=== PATIENT | male | born 1955 | race Caucasian/White ===

== ENCOUNTER → 2017-01-12 | Outpatient (CLI) | payer BC ==
[2017-01-12 07:42] LABS: Basophils % (A) 0 %; CH 31.9; CHCM 35.1; Eosinophils # (A) 0.1 k/uL (0-0.7); Eosinophils % (A) 1 %; HCT 50.7 % (39.0-53.0); HDW 2.76; HGB 17.5 gm/dL (13.0-17.5); Luc # (Auto) 0.22; Luc % (Auto) 2; Lymphocytes # (A) 1.9 k/uL (1.0-4.8); Lymphocytes % (A) 20 %; MCH 31.4 pg (25.0-35.0); MCHC 34.5 g/dL (31.0-37.0); MCV 91.2 fL (80.0-100.0); Mean Platelet Volume 6.2; Monocytes # (A) 0.7 k/uL (0-1.0); Monocytes % (A) 7 %; Neutrophils # (A) 6.6 k/uL (1.3-7.7); Neutrophils % (A) 70 %; RBC 5.56 m/uL (4.30-5.90); RDW 13.4 % (11.5-15.5); WBC 9.5 k/uL (3.8-10.6); WBC (Perox) 9.22
[2017-01-12 07:48] LABS: Prothrombin Time 10.3 sec (9.0-12.0)
[2017-01-12 08:01] LABS: Anion Gap 11 mmol/L; Blood Urea Nitrogen 21 mg/dL (9-20); Calcium 9.4 mg/dL (8.4-10.2); Carbon Dioxide 29 mmol/L (22-30); Chloride 98 mmol/L (98-107); Glucose 93 mg/dL (74-99); Non-African American GFR(MDRD) >60 (>60 ml/min/1.73 sqM); Potassium 4.2 mmol/L (3.5-5.1); Sodium 138 mmol/L (137-145)
== END | disposition home or self-care (01) ==
LOC: LABPAT 06:48
PROVIDERS: ATTEND Orthopaedic Surgery Orthopaedic Surgery of the Spine
DX: Z01.812 Encounter for preprocedural laboratory examination (principal)
CPT/HCPCS: 80048; 85025; 85610; 85730; 86850; 86900; 86901; 87070

== ENCOUNTER 2017-01-18 11:43 | Observation (INO) | payer BC ==
[2017-01-12 14:51] VITALS: BMI 30.7
[~2017-01-18 11:43] MED LIST: BACITRACIN 50,000 UNIT, POLYMYXIN B 500,000 UNIT in SODIUM CHLORIDE 0.9% IRRIGATIO 1,00... IRRIGATION ONE; ceFAZolin 2 GM in SODIUM CHLORIDE 0.9% 100 ML IVPB ONE
[2017-01-18] MEDS ORDERED: ONDANSETRON 4 MG/2 ML VIAL IVP ONE (11:48)
[2017-01-18] MEDS ORDERED: MIDAZOLAM 2 MG/2 ML VIAL IV PRN (11:48)
[2017-01-18] MEDS ORDERED: LACTATED RINGERS 1,000 ML IV SCH (11:48)
[2017-01-18] MEDS ORDERED: DEXAMETHASONE SOD PHOSPHATE 10 MG/ML 1 ML VIAL IV ONE (11:48)
[2017-01-18] MEDS ORDERED: LACTATED RINGERS 1,000 ML IV ONE (12:08)
[2017-01-18] MEDS ORDERED: LIDOCAINE 1% 20 ML VIAL (10MG/ML) FOR IV START INTRADERMA ONE (12:10)
[2017-01-18] MEDS ORDERED: fentaNYL (PF) 50 MCG/ML 2 ML AMP ONE (12:56)
[2017-01-18] MEDS ORDERED: PROPOFOL 10 MG/ML 20 ML VIAL IV ONE (12:56)
[2017-01-18] MEDS ORDERED: PHENYLEPHRINE-0.9% NACL SYG 1 MG/10 ML SYRINGE ONE (12:56)
[2017-01-18] MEDS ORDERED: GLYCOPYRROLATE 0.2 MG/ML 2 ML VIAL ONE (12:56)
[2017-01-18] MEDS ORDERED: MIDAZOLAM 2 MG/2 ML VIAL ONE (12:56)
[2017-01-18] MEDS ORDERED: ROCURONIUM BROMIDE 10 MG/ML 10 ML VIAL IV ONE (12:56)
[2017-01-18] MEDS ORDERED: SUCCINYLCHOLINE CHLORIDE 100 MG/5 ML SYR IV ONE (12:56)
[2017-01-18] MEDS ORDERED: LIDOCAINE 1% INJ 10MG/ML (20 ML MDV) ONE (12:56)
[2017-01-18] MEDS ORDERED: ePHEDrine 50 MG/ML 1 ML AMP ONE (12:56)
[2017-01-18] MEDS ORDERED: NEOSTIGMINE 1 MG/ML 10 ML VIAL ONE (12:56)
[2017-01-18] MEDS ORDERED: LIDOCAINE 0.5%-EPI 1:200,000 50 ML VIAL SQ ONE (13:30)
--- NOTE | 2017-01-18 14:10 | XR ---
EXAMINATION TYPE: XR lumbar spine 1V, FL guidance operating room DATE OF EXAM: 01/18/2017 1:45 PM COMPARISON: NONE HISTORY: 61-year-old male lumbar laminectomy in the OR. FINDINGS: Single lateral view of the lumbar spine intraoperatively shows metallic instruments posteriorly at th e L3-L4 level. Total fluoroscopy time of 4 seconds was utilized for lumbar laminectomy. One image was provided and d ocuments the procedure. IMPRESSION: Intraoperative fluoroscopy as above.
[2017-01-18] MEDS ORDERED: BENZOCAINE/MENTHOL LOZENG 1 EACH LOZENGE MUCOUS MEM PRN (14:38)
[2017-01-18] MEDS ORDERED: KETOROLAC 30 MG/ML 1 ML VIAL IVP PRN (14:39)
[2017-01-18] MEDS ORDERED: IBUPROFEN 600 MG TAB PO PRN (14:39)
[2017-01-18] MEDS ORDERED: HYDROcodone/APAP 5-325MG 1 EACH TAB PO PRN ×2 (14:39→14:42)
--- NOTE | 2017-01-18 14:47 | P.OP ---
Date of Procedure: 01/18/17 Preoperative Diagnosis: Massive disc herniation L3 4, left lower extremity radiculopathy, left lower extremity weakness Postoperative Diagnosis: Same Anesthesia: GETA Pathology: none sent Condition: stable Disposition: PACU Description of Procedure: BRIEF OPERATIVE NOTE Preoperative Diagnosis: Massive disc herniation L3 4, left lower extremity radiculopathy, left lower extremity weakness Postoperative Diagnosis: Same Procedure: Laminectomy and decompression L3 4 Discectomy for decompression L3 4 Use of fluoroscopic guidance Surgeon: Dr. Funk Planishing Press Operator: David Lemos is present throughout the entire the case persistence during positioning, dissection, exposure, visualization, and all crucial elements of the case as well as closure. Anesthesia: General anesthesia Estimated blood loss: Approximately 50 mL Complications: None apparent Components implanted: None Disposition: To recovery room in good stable condition. OPERATIVE INDICATIONS The patient has been having issues in their lower back and lower extremities. He was found to have a massive disc herniation at L3 4 causing severe central and bilateral foraminal stenosis worse on the left than the right. The patient was having severe symptoms correlated well with these findings including upper extremity radiculopathy and weakness. The patient has been through conservative treatment. he is not having any benefit despite conservative care We discussed various treatment options including surgery, and the patient wishes to proceed with surgery We discussed the risk, patient's alternatives and benefits of surgery including but not limited to, risk of bleeding risk of infection, risk of need for further surgery, risk of decreased, loss of motion, loss of function, nerve damage, paralysis, heart attack, blindness and . OPERATIVE SUMMARY After discussing all the risks, patient alternatives and benefits at length, the patient elected to proceed with surgical intervention, signed informed consent, and presented for their procedure. The patient was seen and examined in the preoperative holding area and the surgical site was marked. The patient was given antibiotics and brought to the operating room. The patient was sedated and intubated by anesthesia in standard fashion. The patient was positioned on to the operating room table in a prone position on the appropriate frame which was well-padded and well molded. We were careful to pad any bony prominences and pressure points. We were careful to maintain the patient's cervical spine and good neutral alignment and position throughout. The patient was prepped and draped in a normal standard fashion. An appropriate timeout and keystone protocol performed. We were able to proceed with the surgery. Fluoroscopy was utilized to establish the appropriate level. The local wound area was infiltrated with local anesthetic. An incision was made at the midline longitudinally over the appropriate levels At L3 4. Dissection was taken down subcutaneously to the level of the fascia which was split midline. Dissection was taken over the lamina. Intraoperative fluoroscopy was taken which showed a marker at the appropriate level At L3 4. With the appropriate level positively confirmed, we were able to proceed with laminectomy. The wound was copiously irrigated and suctioned dry as had been done periodically throughout the case. I performed a laminectomy with a combination of curettes and a high-speed bur and Kerrison rongeurs. A small medial facetectomy was performed again further access. A partial foraminotomy was also performed. Portions of the ligamentum flavum were taken down to expose the dura and traversing nerve root. I was able to mobilize the traversing nerve root and gain access to the disc space. Note was made of obvious compression from the disc. There is large fragments of extruded disc material causing severe distortion and tension at the traversing nerve root and dura. I was able to remove a number of large disc fragments which gave excellent decompression at the space. Protecting the soft tissue structures, a small annulotomy was established Over a large rent in the lateral aspect of the disc. I was able to perform discectomy and remove any extruded disc fragments and any loose fragments from within the disc itself. There is some disc significant desiccation noted. I tried to preserve the disc annulus that appeared stable. There were no further extruded fragments noted. at the anterior lateral aspect of the dura there was evidence of small dural abrasion but there is no evidence of active leakage of CSF from the space. It was possibly 1 mm in size. I did not feel that needed specific stitches but I decided to place Tisseel over the space for supplementary healing. There is no evidence of any active leakage. Good hemostasis maintained. The wound was copiously irrigated and suctioned dry. Good decompression and discectomy was noted. We were able to proceed with closure. The fascia was closed for a watertight closure. The subcuticular tissue was closed with absorbable suture. The wound was cleaned and dried and dressed with the appropriate dressing. The drapes were broken down. The patient was gently rolled back onto their hospital bed being careful to maintain their cervical spine and good neutral alignment and position. They were woken up by anesthesia, extubated, and brought to the recovery room in good stable condition. The patient will be admitted to the hospital for observation and for appropriate postoperative care, medical management and monitoring. We will continue to follow them closely about the postoperative course.
[2017-01-18] MEDS: HYDROmorphone 1 MG/ML 1 ML SYRINGE IVP PRN ×3 (14:52→19:36)
[2017-01-18] MEDS: GABAPENTIN 100 MG CAP PO SCH ×2 (16:27→23:02)
[2017-01-18] MEDS: SODIUM CHLORIDE 0.9% 1,000 ML IV SCH (16:28)
[2017-01-18] MEDS: ceFAZolin 2 GM in SODIUM CHLORIDE 0.9% 100 ML IVPB SCH (16:40)
[2017-01-18] MEDS: DIAZEPAM 5 MG TAB PO PRN ×2 (16:44→20:06)
[2017-01-18] MEDS: HYDROcodone/APAP 5-325MG 1 EACH TAB PO PRN ×2 (17:41→23:02)
[2017-01-19] MEDS: ceFAZolin 2 GM in SODIUM CHLORIDE 0.9% 100 ML IVPB SCH (02:12)
[2017-01-19] MEDS: SODIUM CHLORIDE 0.9% 1,000 ML IV SCH ×2 (04:48→10:57)
[2017-01-19] MEDS: PANTOPRAZOLE 40 MG TABLET PO SCH (08:16)
[2017-01-19] MEDS: ATORVASTATIN 20 MG TAB PO SCH (08:16)
[2017-01-19] MEDS: LOSARTAN-HCTZ 50-12.5 MG 1 EACH TAB PO SCH (08:16)
[2017-01-19] MEDS: GABAPENTIN 100 MG CAP PO SCH ×3 (08:16→21:42)
--- NOTE | 2017-01-19 09:07 | P.DS ---
Providers Date of admission: 01/18/17 22:02 Expected date of discharge: 01/19/17 Attending physician: Seda Funk Primary care physician: Adithya Pantoja - Discharge Diagnosis(es) (1) Herniated nucleus pulposus, L3-4 left Current Visit: Yes Status: Acute (2) Left leg weakness Current Visit: Yes Status: Acute (3) Radiculopathy with lower extremity symptoms Current Visit: Yes Status: Acute Hospital Course: This is a pleasant 61-year-old male who presented with an L3-4 massive disc herniation with left lower extremity radiculopathy and weakness who failed outpatient conservative therapy. He was admitted for an L3-4 laminectomy, decompression, and discectomy. He did sustain a small dural abrasion during surgical intervention. Since that time, patient has remained lying flat on his back or on his side. We will plan have him sit up in approximately 11:00 AM today, 01/19/2017, to eat his lunch. We will assess whether he is having any spinal headaches. We discussed if he is not experiencing any spinal headaches, he may begin to ambulate and increase activities to tolerance. If he is not having any spinal headaches with increased activities he'll be cleared for discharge home today. If he does have evidence of spinal headaches, he is to be placed on bedrest and he must remain lying flat on his back or on his side. Postsurgically, patient states his pain has been well-controlled. He is not experiencing significant lower extremity radiculopathy, which was present prior to surgical intervention. He has had some constipation over the last several days due to his pain medication. He states he has noticed some delay in urination postsurgically but states it has improved this morning as compared to yesterday. We discussed if this does not continue to improve prior to discharge , we'll discuss further treatment and assessment prior to discharge. He is looking forward to sitting up today and attempting to eat and increase activities with plans of being discharged home today. Overall, patient is not currently experiencing any significant setbacks postsurgically. If the patient is able to sit up and increase activities without evidence of spinal headaches, he'll plan to be discharged this afternoon. Condition on day of discharge stable. Patient will be discharged home. Patient was cleared preoperatively for surgery by Dr. Adithya Pantoja. Patient currently denies any nausea, vomiting , fever, or chills. He denies any abdominal pain or discomfort. Patient may shower Tegaderm dressing intact. Patient may remove Tegaderm dressing in 3 days and shower without a dressing at that time. Patient should keep Steri- Strips intact and allow them to fall off naturally. Patient should refrain from driving until at least after their first follow-up appointment in the office. Patient should avoid excessive bending, lifting, and twisting; no lifting greater than 10 pounds. Patient states he has a prescription for [place] 5 mg/325 mg and Neurontin 100 mg at home. He feels he has adequate amounts of both of these prescriptions and does not currently need any refills at discharge. We will plan to give him a prescription for Senokot-S at discharge which he may take up to twice per day as needed for constipation. He may resume other prescribed medications. Physical Exam on day of discharge: Patient is awake, alert, and oriented 3 Vital signs stable Good chest excursion with deep inspiration and expiration Abdomen soft nontender No signs or symptoms of DVT; no calf pain Extensor hallucis longus, plantarflexion, and dorsiflexion positive sustained bilateral lower extremities Incision is dry and intact; evidence of some dried blood over the nonstick Telfa with no active drainage; no erythema, purulence, or signs of infection Tegaderm dressing and non-stick Telfa intact Procedures: L3-4 laminectomy, decompression, and discectomy Patient Condition at Discharge: Stable Plan - Discharge Summary New Discharge Prescriptions: Sennosides-Docusate Sodium [Senokot-S] 1 tab PO BID PRN #60 tablet PRN Reason: Constipation Discharge Medication List Atorvastatin [Lipitor] 20 mg PO DAILY 06/28/15 [History] Losartan/Hydrochlorothiazide [Losartan-Hctz 100-25 mg Tab] 1 tab PO DAILY [History] Gabapentin [Neurontin] 100 mg PO TID 01/12/17 [History] HYDROcodone/APAP 5-325MG [[place] 5-325] 1 tab PO Q8HR PRN 01/12/17 [History] Omeprazole 20 mg PO DAILY 01/12/17 [History] Sennosides-Docusate Sodium [Senokot-S] 1 tab PO BID PRN #60 tablet 01/19/17 [Rx] Follow up Appointment(s)/Referral(s): David Taveras, SHEA [PHYSICIAN BIT SHARPENER] - 2 Weeks (Patient may follow-up with David Taveras PA-C or Dr. Jayson Funk at [facility] in 2-3 weeks following discharge. ) Activity/Diet/Wound Care/Special Instructions: 1. Patient may shower Tegaderm dressing intact. 2. Patient may remove Tegaderm dressing in 3 days and shower without a dressing at that time. 3. Patient should keep Steri-Strips intact and allow them to fall off naturally. 4. Patient should refrain from driving until at least after their first follow- up appointment in the office. 5. Patient should avoid excessive bending, twisting, and lifting; no lifting greater than 10 pounds 6. Do not soak in tub Discharge Disposition: HOME SELF-CARE
[2017-01-19] MEDS: HYDROcodone/APAP 5-325MG 1 EACH TAB PO PRN ×3 (09:28→20:42)
[2017-01-19] MEDS: HYDROmorphone 1 MG/ML 1 ML SYRINGE IVP PRN ×2 (11:04→20:42)
[2017-01-19] MEDS: DIAZEPAM 5 MG TAB PO PRN ×2 (11:04→20:43)
[2017-01-19] MEDS: ONDANSETRON 4 MG/2 ML VIAL IVP PRN (12:54)
[2017-01-19] MEDS: TAMSULOSIN 0.4 MG CAP.ER.24H PO SCH (13:36)
--- NOTE | 2017-01-19 20:47 | CONS ---
DATE OF CONSULTATION: 01/19/2017 REASON FOR CONSULTATION: Medical management requested by Dr. Funk. CONSULTATION: This is a pleasant 61-year-old patient of Dr. Pantoja whose chronic stable medical conditions include GERD, hypertension, hyperlipidemia. Patient has undergone lumbar surgery by Dr. Funk for disc herniation at L3-L4 and left lower extremity radiculopathy. Patient is having some pain. No nausea or vomiting. Lying in bed. Patient is tired. Denies any chest pain. No nausea, vomiting. REVIEW OF SYSTEMS: CONSTITUTIONAL: Tired. HEENT: None. RESPIRATORY: None. CARDIOVASCULAR: None. GASTROINTESTINAL: None. GENITOURINARY: None. MUSCULOSKELETAL: Pain in the lower back. DERMATOLOGICAL: None. HEMATOLOGICAL: None. LYMPHATICS: None. PSYCHIATRY: None. NEUROLOGICAL: None. PAST HISTORY: 1. Disc herniation at L3-L4. 2. Left lower extremity radiculopathy. 3. GERD. 4. Hypertension. 5. Hyperlipidemia. 6. Sleep apnea; workup in place. PAST SURGICAL HISTORY: Colonoscopy. SOCIAL HISTORY: Smoked a pack a day for 20 years; stopped 25 years ago. . 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 FAMILY HISTORY: Cancer, type unknown. HOME MEDICATIONS: 1. Omeprazole 20 mg a day. 2. Lopressor/hydrochlorothiazide 100/25 one tablet a day. 3. [place] 5 one tablet q.8 p.r.n. 4. Neurontin 100 mg p.o. t.i.d. 5. Lipitor 20 mg p.o. daily. 6. Senokot-S one tablet p.o. t.i.d. p.r.n. ALLERGIES: PENICILLIN and SULFA. On examination, temperature 97.7, pulse 105, respiration 18, blood pressure 112/73, pulse ox 94% on 2 L. GENERAL APPEARANCE: Well build; BMI of 30. Lying in bed. Tired-appearing. EYES: Pupils equal. Conjunctivae normal. HEENT: External appearance of nose and ears normal. Oral cavity normal. NECK: JVD not raised. Mass not palpable. RESPIRATORY: Effort normal. LUNGS: Slightly decreased breath sounds. CARDIOVASCULAR: First and second sounds normal. No edema. ABDOMEN: Soft, nontender. Liver and spleen not palpable. LYMPHATIC: No lymph node palpable in neck or axillae. PSYCHIATRY: Alert and oriented x3. Mood and affect normal. NEUROLOGICAL: Pupils equal. Cranial nerves grossly intact. MUSCULOSKELETAL: Moving both lower extremities. INVESTIGATIONS: No blood work from today. ASSESSMENT: 1. Massive disc herniation at L3-L4, left lower extremity radiculopathy followed by laminectomy and decompression and discectomy. 2. Gastroesophageal reflux disease. 3. Essential hypertension. 4. Hyperlipidemia. PLAN: Patient is getting medication for pain control. He has Venodyne boots for DVT prophylaxis. Care was discussed with the patient. Will follow. Thank you, Dr. Funk.
[2017-01-19] MEDS: DOCUSATE 100 MG CAP PO SCH (21:42)
[2017-01-19] MEDS: MAGNESIUM HYDROXIDE 2,400 MG/10 ML CUP PO PRN (21:42)
[2017-01-20] MEDS: SODIUM CHLORIDE 0.9% 1,000 ML IV SCH ×2 (02:00→16:01)
[2017-01-20] MEDS: HYDROmorphone 1 MG/ML 1 ML SYRINGE IVP PRN ×3 (02:00→18:40)
[2017-01-20] MEDS: DIAZEPAM 5 MG TAB PO PRN ×3 (02:01→18:40)
[2017-01-20] MEDS: HYDROcodone/APAP 5-325MG 1 EACH TAB PO PRN ×4 (02:01→15:59)
[2017-01-20 07:44] VITALS: RESP 18
[2017-01-20] MEDS: MAGNESIUM HYDROXIDE 2,400 MG/10 ML CUP PO PRN ×2 (07:48→15:53)
[2017-01-20] MEDS: ONDANSETRON 4 MG/2 ML VIAL IVP PRN ×2 (07:49→11:50)
[2017-01-20] MEDS: ATORVASTATIN 20 MG TAB PO SCH (07:49)
[2017-01-20] MEDS: GABAPENTIN 100 MG CAP PO SCH ×3 (07:49→22:55)
[2017-01-20] MEDS: DOCUSATE 100 MG CAP PO SCH ×2 (07:49→22:55)
[2017-01-20] MEDS: PANTOPRAZOLE 40 MG TABLET PO SCH (07:50)
[2017-01-20] MEDS: LOSARTAN-HCTZ 50-12.5 MG 1 EACH TAB PO SCH (07:50)
[2017-01-20] MEDS ORDERED: BISACODYL 10 MG SUPP RECTAL STA (10:07)
--- NOTE | 2017-01-20 12:03 | P.GSCN ---
History of Present Illness Consult date: 01/20/17 Reason for Consult: Postoperative urinary retention History of present illness: The patient is a 61-year-old gentleman who 48 hours ago underwent a lumbar exploration move all the herniated disc for severe pain. The patient has had problems with urine retention postoperatively. The patient states that he has been constipated since last Wednesday. This, the pain and some difficulty urinating has led to his inability to void. He has a sensation of fullness we cannot urinate. The patient was placed on Flomax last night. He has some mild obstructive symptoms pre-operatively. Been on alpha blockers preoperatively. There is no family history of prostate problems. He has had previous PSAs that were normal. He does not remember his last rectal examination. Review of Systems - Constitutional Reports as per HPI - Genitourinary Reports as per HPI - Musculoskeletal Reports as per HPI Past Medical History Past Medical History: GERD/Reflux, Hypertension Additional Past Medical History / Comment(s): SCHEDULED FOR SLEEP APNEA EVALUATION. History of Any Multi-Drug Resistant Organisms: None Reported Additional Past Surgical History / Comment(s): COLONOSCOPY Past Anesthesia/Blood Transfusion Reactions: No Reported Reaction Past Psychological History: No Psychological Hx Reported Smoking Status: Former smoker Past Alcohol Use History: None Reported Additional Past Alcohol Use History / Comment(s): quit smoking 25 yrs ago, smoked for 20 yrs, 1 PPD Past Drug Use History: None Reported - Past Family History Father Family Medical History: Cancer Additional Family Medical History / Comment(s): . Medications and Allergies Home Medications Medication Instructions Recorded Confirmed Type Atorvastatin [Lipitor] 20 mg PO DAILY 06/28/15 01/18/17 History Losartan/Hydrochlorothiazide 1 tab PO DAILY 06/28/15 01/18/17 History [Losartan-Hctz 100-25 mg Tab] Gabapentin [Neurontin] 100 mg PO TID 01/12/17 01/18/17 History HYDROcodone/APAP 5-325MG [[place] 1 tab PO Q8HR PRN 01/12/17 01/18/17 History 5-325] Omeprazole 20 mg PO DAILY 01/12/17 01/18/17 History Allergies Allergy/AdvReac Type Severity Reaction Status Date / Time Penicillins Allergy Unknown Unknown Verified 01/12/17 14:42 Childhood Sulfa (Sulfonamide Allergy Unknown Rash/Hives Verified 01/12/17 14:42 Antibiotics) Surgical - Exam Vital Signs Temp Pulse Resp BP Pulse Ox 97.9 F 138 H 18 150/83 94 L 01/18/17 11:54 01/18/17 11:54 01/18/17 11:54 01/18/17 11:54 01/18/17 11:54 - General well developed, well nourished, no distress - Eyes PERRL - ENT no hearing loss - Neck trachea midline - Respiratory normal expansion, normal respiratory effort - Cardiovascular Rhythm: regular - Abdomen Abdomen: soft, non tender - Genitourinary Normal genitourinary examination with an indwelling catheter. The patient is circumcised. Prostate is 2+ soft and benign. He has a very hard stool in the rectum - Integumentary no rash, no growths - Neurologic normal coordination, normal sensation - Musculoskeletal normal posture - Psychiatric oriented to time, oriented to person, oriented to place, speech is normal, memory intact Assessment and Plan Plan: Impression: Postoperative urinary retention secondary to pain, constipation, BPH status post lumbar discectomy Recommendations: The patient is appropriately on Flomax. He should have a cathartic to empty his stool. After the stools emptying a voiding trial as appropriate. He is able to void without difficulty no further urologic care will be required. He is voiding with difficulty or not voiding then he will need follow-up in my office. She goes home with the King he'll need a voiding trial in in my office in 3-4 days.
--- NOTE | 2017-01-20 14:52 | P.PN ---
Progress Note - Text Postoperative day #2 Patient is seen and examined today at bedside. The patient has some pain around the surgical site as expected. Pain is being controlled with medication. He feels his legs are doing better. He feels that radicular symptoms have improved significant way. He was having urinary retention and has a King intact now. He was able to have a bowel movement today and once his urine clears we will give him a letter challenges he is able to void freely. Medicine and urology have been seeing him for this. He is on Flomax. He was having significant constipation for the days leading up to his surgery but was able have a bowel movement today. He denies any positional headaches. He denies any spinal headaches. Physical Exam Afebrile with stable vital signs Abdomen is soft nontender. Chest has good excursion deep and space expiration The incision site is clean dry and intact. No erythema there is no purulence. His back seems to be doing well Extremities have not had neurologic change from prior to surgery. His legs have good dorsiflexion and plantarflexion he feels he is having good improvement with his legs Calves and thighs were soft nontender without evidence of DVT. Assessment/Plan Postoperative day #2 status post laminectomy decompression with discectomy L3 4 for massive disc herniation L3 4 Urinary retention Constipation resolved Patient is progressing somewhat slowly from the surgery. He has some urinary retention which may be due to BPH and his constipation. We'll see if he does better with being able to void but now that he has had a bowel movement. If he is able to void freely hand continues to make progress he will be able to be discharged home. He has been seen by Dr. Ojeda and if he is not able to void freely he can still be discharged but with a intact fully. We will continue to increase the patient's mobilization with therapy. We will continue pain control with oral or IV medications. We'll continue to follow patient closely.
--- NOTE | 2017-01-20 15:06 | P.PN ---
Progress Note - Text This is a pleasant 61-year-old male who is seen and examined at bedside after undergoing an L3-4 laminectomy, decompression, and discectomy. He did sustain a small dural abrasion during surgical intervention. Since that time, patient had remained lying flat in bed until 11:00 AM yesterday, 01/19/2017. After that time he was able to sit up in bed eating without difficulty. He was able to ambulate the hallways without significant difficulty. He was not experiencing any spinal headaches. He has, however, been experiencing significant constipation and urinary retention. He had to undergo straight catheterization twice yesterday. A King catheter has been placed. He was seen and examined by medicine who started him on Flomax. He has since been seen and examined by Dr. Manjarrez in urology. Dr. Manjarrez feels the patient should continue with Flomax. He should also be treated for his constipation and after he is able to have a bowel movement, the King catheter can be removed and he can be assessed for his ability to void. Patient states he feels like he needs to urinate but has been unable to start. He has also been experiencing constipation over that past several days prior to surgical intervention. He states he has not had a bowel movement since this past Wednesday. Yesterday he was started on Senokot and milk of magnesia. At this time, he has still been unable to have a bowel movement. He states he is experiencing some increased pain and discomfort today. He states he is passing gas. His increased pain is most significant over the lumbar spine at this incision site, over the left hip and down the left lower extremity. He is receiving Dilaudid in [place] for control of symptoms. Physical Exam: Post-Op day #2 Patient is awake, alert, and oriented 3 Vital signs stable Good chest excursion with deep inspiration and expiration Abdomen is generally distended; no significant pain with palpation No signs or symptoms of DVT; no calf pain Extensor hallucis longus, plantarflexion, and dorsiflexion positive sustained bilateral lower extremities Incision is dry and intact; evidence of some dried blood over the nonstick Telfa with no active drainage; no erythema, purulence, or signs of infection Tegaderm dressing and non-stick Telfa intact King catheter intact Assessment: Status post L3-4 laminectomy, decompression, discectomy Urinary retention Constipation Low back pain Left lower extremity radiculopathy Plan: 1. In regards patient's lumbar spine, he may continue to ambulate as tolerated and participate in activities as tolerated all avoid excessive activities in regards to his lumbar spine. For his constipation, we'll currently planned to order a Dulcolax suppository. He may continue with Senokot-S and milk of magnesia as needed as well. We will attempt to get his bowels moving and facilitate a bowel movement. Once he is able to have a bowel movement, we may plan to discontinue his King catheter as advised by Dr. Manjarrez to see if he is able to void without difficulty. If he is unable to void after having a bowel movement, we may plan to discharge patient with a King catheter with plans for him to follow up with Dr. Manjarrez in 3-4 days for further evaluation in the outpatient setting. 2. Continue pain control 3. Medicine and urology to continue following the patient; continue with Flomax as prescribed 4. We'll continue to follow patient closely; If the patient is able to have a bowel movement and is able to void without significant difficulty, patient will be cleared for discharge home
[2017-01-20] MEDS: TAMSULOSIN 0.4 MG CAP.ER.24H PO SCH (17:18)
--- NOTE | 2017-01-20 19:56 | PN ---
PRESENTING PROBLEM: Lumbar surgery for disc herniation at L3, L4 and left lower extremity radiculopathy. INTERVAL HISTORY: This is a 61-year-old patient who is status post lumbar surgery for disc herniation, L3, L4, and left lower extremity radiculopathy. Currently patient has minimal pain. Pain is well controlled. No nausea or vomiting. Lying in bed. Patient does appear tired. Denies chest pain. Review of systems done for constitutional, cardiovascular, gastrointestinal, pulmonary; relevant findings listed above. Current medications include: 1. [place]. 2. Lipitor. 3. Valium. 4. Neurontin. 5. Dilaudid. 6. Protonix. 7. Flomax. PHYSICAL EXAMINATION: VITAL SIGNS: Temperature 97.9, heart rate 111, respiratory rate 18, blood pressure 126/78, oxygen saturation 94% on room air. GENERAL APPEARANCE: Lying in bed, tired-appearing. Awake, alert. No acute distress noted. EYES: Pupils equal. Conjunctivae normal. NECK: JVD not raised. Mass not palpable. RESPIRATORY: Effort normal. LUNGS: Slightly decreased breath sounds. CARDIOVASCULAR: S1, S2 normal. No edema. ABDOMEN: Soft, nontender. Liver and spleen palpable. PSYCHIATRIC: Alert and oriented x3. Mood and affect are normal. INVESTIGATIONS. No blood work from today. ASSESSMENT. 1. Massive disc herniation at L3, L4, left lower extremity radiculopathy followed by laminectomy and decompression and discectomy. 2. Gastroesophageal reflux disease. 3. Essential hypertension. 4. Hyperlipidemia. PLAN: Patient is getting medication for pain control. He has Venodyne boots for DVT prophylaxis. Care was discussed with the patient. History and physical was performed on the patient by me/nurse practitioner and attending/Dr. Nagel. The relevant points of the history/physical/diagnoses/plan were discussed and are as dictated above.
[2017-01-20 22:58] VITALS: TEMP 97.5
[2017-01-21] MEDS: HYDROcodone/APAP 5-325MG 1 EACH TAB PO PRN ×3 (06:15→15:56)
[2017-01-21] MEDS: DIAZEPAM 5 MG TAB PO PRN ×2 (07:11→13:41)
[2017-01-21 07:57] VITALS: BP 118/72; PULSE 99
--- NOTE | 2017-01-21 08:03 | P.PN ---
Progress Note - Text Postoperative day #3 Patient is seen and examined today at bedside. The patient has some pain around the surgical site as expected. he saw has some pain in his left lower extremity and has some difficulty getting around but this is somewhat improved from prior to surgery. He still has a King intact. He was able to have a bowel movement yesterday. Physical Exam Afebrile with stable vital signs Abdomen is soft nontender. Chest has good excursion deep and space expiration The incision site is clean dry and intact. No erythema there is no purulence.the incision site appears clear at his back Extremities have not had neurologic change from prior to surgery.he has been ambulatory Calves and thighs were soft nontender without evidence of DVT. Assessment/Plan Postoperative day #3 status post laminectomy and discectomy L3 4 4 massive disc herniation and left lower extremity radicular pain and weakness Patient is progressing as slowly from the surgery. he was having urinary retention. The consult from Dr. Vasquez is appreciated. He was able have a bowel movement yesterday we'll see how he does with a urinary challenge today. If he is able to avoid then hopefully this will continue to progress and we'll be able to have him discharged however if he is not able to void he may need placement of the King back in and then follow-up with urology in 3-4 days. We will continue to increase the patient's mobilization with therapy. We will continue pain control with oral or IV medications. We'll continue to follow patient closely.
[2017-01-21 08:18] LABS: Anion Gap 5 mmol/L; Blood Urea Nitrogen 11 mg/dL (9-20); Calcium 8.1 mg/dL (8.4-10.2); Carbon Dioxide 30 mmol/L (22-30); Chloride 97 mmol/L (98-107); Glucose 109 mg/dL (74-99); Non-African American GFR(MDRD) >60 (>60 ml/min/1.73 sqM); Potassium 3.2 mmol/L (3.5-5.1); Sodium 132 mmol/L (137-145)
[2017-01-21] MEDS: GABAPENTIN 100 MG CAP PO SCH ×2 (08:32→15:28)
[2017-01-21] MEDS: DOCUSATE 100 MG CAP PO SCH (08:32)
[2017-01-21] MEDS: ATORVASTATIN 20 MG TAB PO SCH (08:32)
[2017-01-21] MEDS: LOSARTAN-HCTZ 50-12.5 MG 1 EACH TAB PO SCH (08:33)
[2017-01-21 08:51] LABS: CH 31.6; HCT 37.4 % (39.0-53.0); HDW 2.87; MCH 31.6 pg (25.0-35.0); MCHC 35.8 g/dL (31.0-37.0); MCV 88.1 fL (80.0-100.0); Mean Platelet Volume 6.8; RBC 4.25 m/uL (4.30-5.90); WBC 5.3 k/uL (3.8-10.6)
[2017-01-21 09:08] LABS: HGB 13.4 gm/dL (13.0-17.5)
[2017-01-21] MEDS: PANTOPRAZOLE 40 MG TABLET PO SCH (09:15)
[2017-01-21] MEDS: SODIUM CHLORIDE 0.9% 1,000 ML IV SCH (11:35)
--- NOTE | 2017-01-23 22:12 | PN ---
ADDENDUM: DATE OF SERVICE: 01/20/2017 Patient's progress note dictated by Nurse Practitioner Alis Parker on 01/20/2017 at 1927, day transcribed on 01/20/2017 at 1955 and electronically signed by me, the date of service on this note is 01/20/2017.
--- NOTE | 2017-02-19 07:12 | PN ---
DATE OF SERVICE: ATTENDING NOTE: This patient was seen and examined by me on 01/20/2017. I reviewed the note of my nurse practitioner, Ms. Parker, agreed and discussed the same. Patient is status post lumbar surgery, pain is controlled. No nausea, vomiting. On examination, afebrile, blood pressure 100/76. Lying in bed, more comfortable. RESPIRATORY: Effort normal. LUNGS: Slightly decreased breath sounds. CARDIOVASCULAR: First and second sounds normal. ASSESSMENT: 1. Status post lumbar surgery. 2. Hypertension. 3. Hyperlipidemia. PLAN: Continue current medication and treatment plan. Activity as per surgery. Encouraged to be out of bed.
== END 2017-01-21 16:10 | disposition home or self-care (01) ==
LOC: OR 11:43 → 5ONC 14:27 → OR 22:02 → 5MS5E 01-19 14:06
PROVIDERS: ADMIT Orthopaedic Surgery Orthopaedic Surgery of the Spine; ATTEND Orthopaedic Surgery Orthopaedic Surgery of the Spine
DX: M51.16 Intervertebral disc disorders with radiculopathy, lumbar region (principal); M48.00 Spinal stenosis, site unspecified; Z88.0 Allergy status to penicillin; Z88.2 Allergy status to sulfonamides; E78.5 Hyperlipidemia, unspecified; I10 Essential (primary) hypertension; K21.9 Gastro-esophageal reflux disease without esophagitis; N99.89 Other postprocedural complications and disorders of genitourinary system; R33.8 Other retention of urine; Z79.899 Other long term (current) drug therapy; Z87.891 Personal history of nicotine dependence
CPT/HCPCS: 94760; 97162; 80048; 85027; 72020; 63047; G0378 ×4; C1762; J2250; J2710; J0690; J2405 ×3; J2001; J3010; J1885; J1170 ×3; J2370; J0330; J2704; 86850; 86900; 86901; 96361; 96374; 96375; 96376

== ENCOUNTER → 2017-07-14 | Outpatient (CLI) | payer BC ==
[2017-07-14 20:25] LABS: Basophils # (A) 0.1 k/uL (0-0.2); Basophils % (A) 1 %; CH 31.3; CHCM 35.2; Eosinophils # (A) 0.1 k/uL (0-0.7); Eosinophils % (A) 2 %; HCT 48.9 % (39.0-53.0); HDW 2.74; HGB 16.4 gm/dL (13.0-17.5); Luc # (Auto) 0.11; Luc % (Auto) 2; Lymphocytes # (A) 1.9 k/uL (1.0-4.8); Lymphocytes % (A) 30 %; MCH 30.1 pg (25.0-35.0); MCHC 33.6 g/dL (31.0-37.0); MCV 89.5 fL (80.0-100.0); Mean Platelet Volume 8.6; Monocytes # (A) 0.5 k/uL (0-1.0); Monocytes % (A) 8 %; Neutrophils # (A) 3.6 k/uL (1.3-7.7); Neutrophils % (A) 57 %; RBC 5.46 m/uL (4.30-5.90); RDW 14.7 % (11.5-15.5); WBC 6.3 k/uL (3.8-10.6); WBC (Perox) 6.19
[2017-07-14 20:31] LABS: ALT 38 U/L (21-72); AST 22 U/L (17-59); Alkaline Phosphatase 63 U/L (38-126); Anion Gap 12 mmol/L; Blood Urea Nitrogen 15 mg/dL (9-20); Calcium 9.4 mg/dL (8.4-10.2); Carbon Dioxide 26 mmol/L (22-30); Chloride 100 mmol/L (98-107); Cholesterol 156 mg/dL (<200); Creatine Kinase 103 U/L (55-170); Glucose 92 mg/dL (74-99); HDL Cholesterol 58 mg/dL (40-60); Non-African American GFR(MDRD) >60 (>60 ml/min/1.73 sqM); Potassium 3.5 mmol/L (3.5-5.1); Sodium 138 mmol/L (137-145); Total Bilirubin 0.9 mg/dL (0.2-1.3); Total Protein 6.9 g/dL (6.3-8.2)
== END ==
LOC: MMGSC 09:24
PROVIDERS: ATTEND Family Medicine
DX: Z00.00 Encounter for general adult medical examination without abnormal findings (principal); E78.5 Hyperlipidemia, unspecified; Z11.59 Encounter for screening for other viral diseases; Z12.5 Encounter for screening for malignant neoplasm of prostate
CPT/HCPCS: 80061; 80053; 80074; 82550; 84443; 85025; 36415; G0103